=== PATIENT | female | born 1990 | race Caucasian/White ===

== ENCOUNTER 2023-02-25 21:37 | Outpatient (CLI) | payer OTHER ==
--- NOTE | 2023-02-26 01:51 | Ultrasound Report ---
PROCEDURE: OB F/U or Repeat INDICATIONS: UTERINE SIZE DATE DISCREPANCY OUTSIDE/PRIOR DATING DATA: Last menstrual period (LMP): 05/17/2022. LMP-based estimated date of delivery (ADONIS): 02/21/2023. First dating scan (date and location): 07/16/2022. Estimated date of delivery (ADONIS) from first dating scan: 03/04/2023. The below data below was generated using the working ADONIS of 03/04/2023 TECHNIQUE: Real-time scanning was performed of the fetus, with image documentation and biometric measurements. COMPARISON: [facility] 10/19/2022. FINDINGS: General: A single living intrauterine gestation is present. Presentation: Vertex Placenta: Placental position is posterior, without previa. Amniotic fluid index: 10.7 cm, within normal limits for gestational age. Largest pocket: 4.1 cm heart rate: 164 beats per minute. Maternal cervical canal: Not visualized. biometrics: Biparietal diameter: 8.8 cm, 35 weeks 5 days Head circumference: 33.5 cm, 30 weeks 2 days Abdominal circumference: 20.9 cm, 32 weeks 6 days Femur length: 6.7 cm, 34 weeks 3 days Estimated gestational age from initial scan: 39 weeks 0 days Composite gestational age from present scan: 35 weeks 2 days Estimated weight and percentile: 2353 g, 1st percentile Measurement variability in biometric dating: +/- 10 days from 12-20 weeks gestation, +/- 2 weeks from 20-30 weeks gestation, +/- 3 weeks at 30 weeks gestation or more. Cord Doppler: Systolic/diastolic ratios of 2.2, 2.3, and 3.1. IMPRESSION: 1. Single living intrauterine demonstrates estimated weight at the 1st percentile com patible with IUGR. 2. BATSHEVA within normal limits. 3. Doppler demonstrates normal S/D ratios with preserved diastolic flow in the amniotic cord. Reviewed by: Hakeem Atwood MD on 02/26/2023 1:49 AM PDT Approved by: Hakeem Atwood MD on 02/26/2023 1:49 AM PDT Station ID: [id number]
== END 2023-02-25 21:38 | disposition home or self-care (01) ==
LOC: DI 21:37
PROVIDERS: ATTEND Nurse Practitioner Obstetrics & Gynecology
DX: O26.843 Uterine size-date discrepancy, third trimester (principal); Z3A.35 35 weeks gestation of pregnancy

== ENCOUNTER 2023-02-26 07:39 | Inpatient (IN) | payer OTHER ==
[2023-02-26] MEDS ORDERED: LABETALOL 20 MG/4 ML SYRINGE IVP PRN ×3 (08:39)
[2023-02-26] MEDS ORDERED: OXYTOCIN/SODIUM CHLORIDE 500 ML IV PRN (08:39)
[2023-02-26] MEDS ORDERED: OXYTOCIN 10 UNIT/ML VIAL IM PRN (08:39)
[2023-02-26] MEDS ORDERED: miSOPROStoL 200 MCG TABLET PR PRN (08:39)
[2023-02-26] MEDS ORDERED: METHYLERGONOVINE 0.2 MG/ML VIAL IM PRN (08:39)
[2023-02-26] MEDS ORDERED: miSOPROStoL 200 MCG TABLET BC PRN (08:39)
[2023-02-26] MEDS ORDERED: hydrALAZINE INJ 20 MG/ML VIAL IVP PRN ×2 (08:39)
[2023-02-26] MEDS ORDERED: TERBUTALINE 1 MG/ML VIAL SUBQ PRN (08:39)
[2023-02-26] MEDS ORDERED: CARBOPROST TROMETHAMINE 250 MCG/ML AMP IM PRN (08:39)
[2023-02-26] MEDS ORDERED: NIFEdipine 10 MG CAPSULE PO PRN (08:39)
[2023-02-26] MEDS ORDERED: SODIUM CHLORIDE FLUSH 0.9% 10 ML SYRINGE IVP PRN (08:39)
[2023-02-26] MEDS ORDERED: fentaNYL 100 MCG/2 ML VIAL IVP PRN (08:39)
[2023-02-26] MEDS ORDERED: TRANEXAMIC ACID IN NACL 1,000 MG/100 ML BAG IV PRN (08:39)
[2023-02-26] MEDS ORDERED: LACTATED RINGERS 500 ML IV ONE (08:39)
[2023-02-26] MEDS ORDERED: lidocaine 1% 20 ML MDV ID PRN (08:39)
--- NOTE | 2023-02-26 09:56 | HISTORY & PHYSICAL EXAMINATION ---
Admit History - Visit Reason Visit Reason: Other - : 1 Parity: 0 Premature: 0 Ectopic: 0 : 0 Care: positive: [facility] Risk/History: positive: Other Complications This : positive: Other Smoking Status: Never smoker - Mother's Labs Mother's Blood Type: positive: B Mother's RH: positive: Positive GBS: positive: Group B Step Negative Rubella Status: positive: Immune Meds/Allgy - Home Medications Home Medications: Ambulatory Orders Medication Instructions Recorded Confirmed Pnv No.95/Ferrous Fum/Folic AC 02/26/23 [ Caplet] - Allergies Allergies/Adverse Reactions: Allergies Allergy/AdvReac Type Severity Reaction Status Date / Time No Known Drug Allergies Allergy Verified 02/26/23 09:54 Review of Systems - Constitutional Constitutional: denies: Fatigue, Fever, Chills, Malaise - Eyes Eyes: denies: Blurred vision, Spots in vision, Dipolpia - Cardiovascular Cariovascular: denies: Irregular heart rate, Palpitations, Chest pain, Edema - Respiratory Respiratory: denies: Wheezing, SOB at rest - Gastrointestinal Gastrointestinal: denies: Constipation, Diarrhea, Nausea, Vomiting - Genitourinary Genitourinary: denies: Dysuria - Integumentary Integumentary: denies: Rash, Pruritis - Neurological Neurological: denies: Headache - Hematologic/Lymphatic Hematologic/Lymphatic: denies: Anemia Physical - Abdominal Exam Vital Signs: Temp Pulse Resp BP Pulse Ox O2 Flow Rate 37.2 C 02/26/23 08:14 Plan for Labor - Plan For Labor Plan for Labor: HPI: Aure is a 32yo @ 39.1wks gestation by 7.0wk U/S who presents to [facility] for medical induction of labor secondary to newly diagnosed intrauterine growth restriction. She denies vaginal bleeding or leakage of fluid and she reports +FM. She was measuring size<dates at her last visit and a STAT ultrasound was ordered at that time. The ultrasound revealed EFW 1%tile (2352g). She has received consistent care for the duration of her which has remained uncomplicated with the exception of cardiac echogenic foci noted on FAS for which she was referred to [facility] for consultation. Her genetic screening with CfDNA and MAFP were negative and EFW at that time was 54%tile. She has been a patient of [facility] since her transfer of care at 24wks gestation from [facility]. She has received consistent and adequate care for the duration of her . She was noted to measure 35cm fundal height at 36 weeks and again at 38 weeks, at which time a growth ultrasound was ordered and revealed EFW 1%tile. Patient was notified and induction of labor with pre-induction cervical ripening scheduled immediately. She presents to [facility] with her [place] (Andrew) who is supportive at the bedside. She will be admitted for active management. Dating Criteria: LMP: 05/17/2022 Initial U/S @ 7.0wks dates with ADONIS 03/04/2023 Serial exams - agree PMHx: Migraines, Malaria (~2004), hypermobility Surgical Hx: Adenoidectomy, right breast augmentation Family Hx: Arrhythmia - mother; colon cancer - MGM; Cardiomyopathy -brother; Drug/alcohol abuse - brother, MGF Social Hx: to [place] (goes by Andrew). 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 They are relocating to [facility] this summer. Former smoker (~12yo). No ETOH or IVDA. Medications: PNV, Fish oil, Ferrous sulfate Allergies: NKDA course: B positive, antibody negative Rubella immune; varicella immune Initial U/S @ 7.0wks gestation dates with ADONIS 03/04/2023 Genetic screening: CfDNA negative, AFP - negative FAS WNl with the exception of bilateral echogenic intracardia foci and borderline pyelectasis noted. Posterior placenta, no previa. EFW 50%tile. M consult for echogenic foci at 23wks was WNL with EFW 54%tile. Covid-19 vaccination x 2, no booster Influenza vaccine - declined Tdap - received in third trimester Glucola - 89 GBS - negative Growth and BATSHEVA at 39.0wks reveals EFW 1%tile. BATSHEVA WNL (10.7cm with largest pocket 4.1cm). WNL Cord dopplers. Physical exam: Normocephalic, atraumatic Heart RRR w/o M/G/R Lungs CTAB Abdomen gravid, soft, nontender EFW 2353g FHR baseline 130s, moderate variability, + accels, no decels Contractions palpate mild occasionally with soft resting tone SVE 1/80/-2, midposition, soft, Vertex. Brush cervical ripening balloon placed with 80cc intrauterine balloon and 40cc vaginal balloon. Bilateral LE's trace edema Assessment: 32yo @ 39.1wks gestation by 7wk U/S IUGR GBS neg FHR Category I Plan: Admit for medical induction of labor secondary to IUGR Brush cervical ripening balloon placed with 80cc intrauterine and 40cc vaginal balloon. Pt tolerated placement well. Continuous monitoring. Expectant management with cervical ripening balloon in place x 4 hours with initiation of pitocin vs misoprostol at that time. call center dispatcher multi slide machine tender notified of patient with IUGR. Anticipate .
[2023-02-26] MEDS: SODIUM CHLORIDE FLUSH 0.9% 10 ML SYRINGE IVP SCH (12:50)
[2023-02-26 13:18] LABS: BASOPHILS # (AUTO) 0.1 10^3/uL (0.0-0.1); BASOPHILS % (AUTO) 0.6 %; EOSINOPHILS # (AUTO) 0.1 10^3/uL (0.0-0.7); EOSINOPHILS % (AUTO) 1.2 %; HCT - HEMATOCRIT 43.4 % (37.0-47.0); LYMPHOCYTES # (AUTO) 1.9 10^3/uL (1.5-3.5); LYMPHOCYTES % (AUTO) 19.6 %; MEAN CORPUSCULAR HGB CONC 32.3 g/dL (32.0-36.0); MEAN CORPUSCULAR VOLUME 93.1 fL (81.0-99.0); MEAN PLATELET VOLUME 11.5 fL (7.9-10.8); MONOCYTES # (AUTO) 0.4 10^3/uL (0.0-1.0); MONOCYTES % (AUTO) 4.1 %; NEUTROPHILS # (AUTO) 7.2 10^3/uL (1.5-6.6); PLT - PLATELET COUNT 176 10^3/uL (130-450); RED BLOOD COUNT 4.66 10^6/uL (4.20-5.40); RED CELL DISTRIBUTION WIDTH 12.8 % (12.0-15.0); WHITE BLOOD COUNT 9.8 x10^3/uL (4.8-10.8)
[2023-02-26] MEDS: LACTATED RINGERS 1,000 ML IV SCH (13:55)
[2023-02-26] MEDS: miSOPROStoL 100 MCG TABLET BC SCH (14:11)
--- NOTE | 2023-02-26 18:30 | PROVIDER PROGRESS NOTE ---
Labor Progress Note - Uterine Monitoring Uterine Monitoring Mode: positive: External toco Contraction Frequency (min/apart): 6 Contraction Intensity: positive: Mild to moderate Uterine Resting Tone: positive: Soft - Monitoring Monitor Mode: positive: External ultrasound Heart Rate Baseline: 140 Heart Rate Variability: positive: Moderate (6-25 bmp) Accelerations: positive: Present, 15x15 Decelerations: positive: None Strip Review: positive: Category I - Vaginal Exam Dilation (in cm): 5 Effacement (%): 80 Station: -2 Cervical Position: Midposition - Labor Progress Note Labor Progress Note/Additional Text: S: Feeling more discomfort with contractions and the intensity of the cont raction has occasionally required her to breathe through them. She has been using the peanut ball in bed but has frequently been up walking around or bouncing on the exercise ball at the bedside. She states she is feeling good about her progress thus far. Her and her manager patient are both supportive at the bedside. O: Cervical ripening balloon expelled SVE 5/80/-2, midposition. Vertex. A: 32yo @ 39.1wks gestation by 7.0wk U/S IUGR GBS neg FHR Category I P: Continue induction of labor secondary to IUGR. Pt desires expectant management x 4 hours. Discussed AROM at that time and pt agrees. Continuous monitoring. Anticipate .
--- NOTE | 2023-02-26 22:39 | PROVIDER PROGRESS NOTE ---
Labor Progress Note - Uterine Monitoring Uterine Monitoring Mode: positive: External toco Contraction Frequency (min/apart): 2-5 Contraction Intensity: positive: Moderate Uterine Resting Tone: positive: Soft - Monitoring Monitor Mode: positive: External ultrasound Heart Rate Baseline: 130 Heart Rate Variability: positive: Moderate (6-25 bmp) Accelerations: positive: Present, 15x15 Decelerations: positive: None Strip Review: positive: Category I - Labor Progress Note Labor Progress Note/Additional Text: S: Breathing through contractions. Walking in the hallway and doing squats and lunges. She is feeling very reassured about her progress thus far as her water just broke on it's own while she is in a deep squat in the hallway during a contraction. She is supported by her who is at the bedside currently and her meter calibrator is on her way now. O: FHR baseline 130s, moderate variability, + accels, no decels Contractions palpate moderate every 2-5 minutes with soft resting tone SVE deferred at this time A: 32yo @ 39.1wks gestation by 7.0wk U/S IUGR GBS neg FHR Category I P: Continue expectant management. Continuous monitoring. SVE in 4 hours or sooner PRN. Encouraged ambulation and position changes. Anticipate .
--- NOTE | 2023-02-27 02:54 | PROVIDER PROGRESS NOTE ---
Labor Progress Note - Uterine Monitoring Uterine Monitoring Mode: positive: External toco Contraction Frequency (min/apart): 3-6 Contraction Intensity: positive: Moderate Uterine Resting Tone: positive: Soft - Monitoring Monitor Mode: positive: External ultrasound Heart Rate Baseline: 130 Heart Rate Variability: positive: Moderate (6-25 bmp) Accelerations: positive: Present, 15x15 Decelerations: positive: None Strip Review: positive: Category I - Vaginal Exam Dilation (in cm): 5 Effacement (%): 80 Station: 0 Cervical Position: Midposition - Labor Progress Note Labor Progress Note/Additional Text: S: Bouncing on the exercise ball at the bedside. She was able to get a good little rest in and is feeling well overall. She states the contractions feel about the same in intensity to her since her water broke and have not increased in intensity. O: FHR baseline 130s, moderate variability, + accels, no decels Contractions palpate moderate every 3-6 minutes with soft resting tone SVE 5/80/0, midposition, vertex. AROM x 5 hrs A: 32yo @ 39.2wks gestation by 7.0wk U/S Early labor IUGR GBS neg FHR Category I P: Reviewed options for continued management of labor at this stage to include expectant management, nipple stimulation and continued ambulation and position changes, or initiation of pitocin for labor augmentation. Pt desires to attempt nipple stimulation with ambulation x 2 hours and will then consider pitocin for labor augmentation Repeat SVE in 2 hours. Continuous monitoring. Anticipate .
[2023-02-27] MEDS: SODIUM CHLORIDE FLUSH 0.9% 10 ML SYRINGE IVP SCH ×3 (09:53→10:54)
[2023-02-27] MEDS: miSOPROStoL 100 MCG TABLET BC SCH ×3 (09:53→10:54)
[2023-02-27] MEDS: LACTATED RINGERS 1,000 ML IV SCH ×5 (09:53→23:23)
[2023-02-27] MEDS ORDERED: OXYTOCIN/SODIUM CHLORIDE 500 ML IV SCH (11:00)
--- NOTE | 2023-02-27 16:31 | PROVIDER PROGRESS NOTE ---
Labor Progress Note - Uterine Monitoring Uterine Monitoring Mode: positive: External toco Contraction Frequency (min/apart): 4 Contraction Intensity: positive: Moderate Uterine Resting Tone: positive: Soft - Monitoring Monitor Mode: positive: External ultrasound Heart Rate Baseline: 120 Heart Rate Variability: positive: Moderate (6-25 bmp) Accelerations: positive: Present, 15x15 Decelerations: positive: None Strip Review: positive: Category I - Labor Progress Note Labor Progress Note/Additional Text: S: Ambulating in the hallways and breathing through contractions. She is coping well and both her and her operating room scheduler are supportive at her side. O: FHR baseline 135, moderate variability, + accels, no decels Contractions palpate moderate every 4 minutes with soft resting tone Pitocin at 2mU/mL SVE deferred A: 32yo @ 39.2wks gestation by 7.0wk U/S IUGR Early labor FHR Category I GBS negative P: Continuous monitoring. Continue titration of pitocin per protocol for induction of labor. Encouraged continued ambulation and position changes. Anticipate .
--- NOTE | 2023-02-27 16:40 | PROVIDER PROGRESS NOTE ---
Labor Progress Note - Uterine Monitoring Uterine Monitoring Mode: positive: External toco Contraction Frequency (min/apart): 4-6 Contraction Intensity: positive: Moderate Uterine Resting Tone: positive: Soft - Monitoring Monitor Mode: positive: External ultrasound Heart Rate Baseline: 130 Heart Rate Variability: positive: Moderate (6-25 bmp) Accelerations: positive: Present, 15x15 Decelerations: positive: Late, Prolonged (>2x10 min) Strip Review: positive: Category II - Vaginal Exam Dilation (in cm): 5 Effacement (%): 80 Station: 0 Cervical Position: Midposition - Labor Progress Note Labor Progress Note/Additional Text: S: Patient crying in a side lying position in the bed secondary to increased anxiety following a prolonged late deceleration to 60bpm. She was rotated to her left and then to her right side and heart rate recovered. Her is supportive at the bedside and they are both understandably nervous. O: FHR baseline 130s, moderate variability, + accels and an episode of 1 prolonged late deceleration to 60bpm with slow return to baseline. call person darrin morris present on the unit and was asked to the bedside. SVE unchanged from previous exam Pitocin discontinued immediately with deceleration A: 32yo @ 39.2wks gestation by 7.0wk U/S IUGR FHR Category II GBS neg P: Expectant management x 1 hour with initiation of pitocin at 1 mU/mL x 30 minutes followed by nipple stimulation for additional oxytocin release for 30 minutes prior to increasing rate of pitocin. Continuous monitoring. call person physician reviewed FHR tracing and agrees with above plan. Encouraged ambulation and position changes. We did discuss the possibility of a delivery if another prolonged late deceleration occurs and we reviewed the entire process and the plan in place in the event it does occur. Anticipate .
--- NOTE | 2023-02-27 21:29 | PROVIDER PROGRESS NOTE ---
Labor Progress Note - Uterine Monitoring Uterine Monitoring Mode: positive: External toco Contraction Frequency (min/apart): 2-3 Contraction Intensity: positive: Moderate Uterine Resting Tone: positive: Soft - Monitoring Monitor Mode: positive: External ultrasound Heart Rate Baseline: 135 Heart Rate Variability: positive: Moderate (6-25 bmp) Accelerations: positive: Present, 15x15 Decelerations: positive: None Strip Review: positive: Category I - Vaginal Exam Dilation (in cm): 5-6 Effacement (%): 90 Station: 0 Cervical Position: Midposition - Labor Progress Note Labor Progress Note/Additional Text: S: Breathing through contractions and swaying at the bedside. Her belt operator and hus band are both supportive at the bedside. She feels the contractions are increasingly significantly in both frequent and intensity. O: FHR baseline 135, moderate variability, + accels, no decels Contractions palpate moderate every 2-3 minutes with soft resting tone SVE 5-6/90/0, midposition. Vertex. Forebag of amniotic fluid noted with cervical check and pt accepts release of this and tolerates release of moderate amount of clear fluid well. SROM x 23 hours, afebrile Pitocin currently at 10mU/mL A: 32yo @ 39.2wks gestation by 7.0wk U/S IUGR FHR Category I GBS neg Nearing prolonged rupture of membranes P: Continuous monitoring Continue pitocin for induction of labor with titration per protocol Encouraged ambulation and position changes. Jacuzzi PRN. Nitrous oxide PRN. Encouraged continued ambulation and position changes. freight caller documentation lead notified of patient status. Anticipate .
--- NOTE | 2023-02-27 21:48 | PROVIDER PROGRESS NOTE ---
Labor Progress Note - Labor Progress Note Labor Progress Note/Additional Text: Pt typed and crossed x 2 units secondary to prolonged rupture of membranes and pitocin induction of labor.
--- NOTE | 2023-02-28 04:58 | PROVIDER PROGRESS NOTE ---
Labor Progress Note - Uterine Monitoring Uterine Monitoring Mode: positive: External toco Contraction Frequency (min/apart): 3-4 Contraction Intensity: positive: Strong Uterine Resting Tone: positive: Soft - Monitoring Monitor Mode: positive: External ultrasound Heart Rate Baseline: 130 Heart Rate Variability: positive: Moderate (6-25 bmp) Accelerations: positive: Present, 15x15 Decelerations: positive: None Strip Review: positive: Category I - Vaginal Exam Dilation (in cm): 6 Effacement (%): 100 Station: 0 Cervical Position: Midposition - Labor Progress Note Labor Progress Note/Additional Text: S: Breathing through contractions. She is very emotional and crying while standing at the bedside and swaying and is feeling very discouraged about her lack of progress over the past 5 hours. She reports feeling very anxious about getting an epidural as suggested. We reviewed alternative pain management and labor tools such as continued deep breathing, jacuzzi tub, nitrous oxide and IV medication. Pt feels like the epidural is the right choice as she is tired, has not slept, and is unsure how much longer she can proceed. She is managing her pain very well and is coping with each contraction. Her and her marker machine attendant are both supportive at the bedside. O: FHR baseline 130s, moderate variability, + accels, no decels Contractions palpate strong every 3-4 minutes with soft resting tone SVE 6/100/0, midposition. Vertex. SROM x 30.5hrs - afebrile Pitocin @ 11mU/mL A: 32yo @ 39.3wks gestation by 7.0wk U/S IUGR Prolonged rupture of membranes FHR Category I GBS negative P: Continue active management of labor with titration of pitocin per protocol. Recommended patient proceed with placement of epidural as a tool to maintain the trajectory towards a vaginal delivery. Anesthesia provider notified to present for further counseling and epidural placement with patient consent. Patient is type and crossed x 2 units secondary to prolonged rupture of membranes and prolonged induction of labor. When patient comfortable with epidural will proceed with placement of intr auterine pressure catheter. Continuous monitoring. Anticipate .
[2023-02-28] MEDS ORDERED: ROPIVACAINE 0.2% 200 MG/100 ML BAG EP ONE (05:21)
[2023-02-28] MEDS: LACTATED RINGERS 1,000 ML IV SCH ×3 (05:51→12:41)
--- NOTE | 2023-02-28 06:24 | ANESTHESIA ---
Pre-Anesthesia VS, & Labs - Diagnosis active labor - Procedure vaginal delivery Vital Signs: Temp Pulse Resp BP Pulse Ox O2 Flow Rate 36.7 C 68 18 117/74 100 02/27/23 20:52 02/27/23 20:52 02/27/23 20:52 02/27/23 20:52 02/27/23 20:52 Height: 5 ft 6 in Weight (kg): 72.121 kg Body Mass Index: 25.7 BMI Classification: Overweight - NPO Other (clear liquids) - Is Patient ?: Yes - Lab Results Current Lab Results: Laboratory Tests 02/26/23 13:29: Blood Type Recheck B POSITIVE 02/26/23 12:50: WBC 9.8, RBC 4.66, Hgb 14.0, Hct 43.4, MCV 93.1, MCH 30.0, MCHC 32.3, RDW 12.8, Plt Count 176, MPV 11.5 H, Neut # (Auto) 7.2 H, Lymph # (Auto) 1.9, [place] # (Auto) 0.4, Eos # (Auto) 0.1, Baso # (Auto) 0.1, Absolute Nucleated RBC 0.00, Nucleated RBC % 0.0 02/26/23 12:50: Blood Type B POSITIVE, Antibody Screen NEGATIVE, Crossmatch IS Only See Detail Lab results reviewed: Yes Fish Bones: 02/26/23 12:50 Home Medications and Allergies Home Medications: Ambulatory Orders Pnv No.95/Ferrous Fum/Folic AC [ Caplet] 02/26/23 Active Medications Carboprost Tromethamine (Carboprost Tromethamine 250 Mcg/Ml Amp) 250 mcg IM .ONCE PRN PRN Reason: Hemorrhage Fentanyl (Fentanyl 100 Mcg/2 Ml Vial) 50 mcg IVP Q1H PRN PRN Reason: Severe Pain (score 7-10) Hydralazine HCl (Hydralazine Inj 20 Mg/Ml Vial) 5 - 10 mg IVP Q20M PRN; Protocol PRN Reason: SBP> or= 160 OR DBP> or= 110 Hydralazine HCl (Hydralazine Inj 20 Mg/Ml Vial) 10 mg IVP .ONCE PRN; Protocol PRN Reason: SBP> or= 160 OR DBP> or= 110 Oxytocin/Sodium Chloride (Pitocin/Sodium Chloride) 500 mls @ 999 mls/hr IV PRN PRN; Protocol PRN Reason: POST- HEMORR PREVENTION Tranexamic Acid (Tranexamic 1,000 Mg/100ml-Nacl) 1,000 mg in 100 mls @ 600 mls/hr IV Q30M PRN PRN Reason: EBL >1200mL and within 3hr Lactated Ringer's (Lr) 1,000 mls @ 125 mls/hr IV .Q8H JUICE Last Admin: 02/27/23 23:23 Dose: 125 mls/hr Oxytocin/Sodium Chloride (Pitocin/Sodium Chloride) 500 mls @ 1 mls/hr IV TITR JUICE; Protocol Last Titration: 02/28/23 03:45 Dose: 11 milliunit/min, 11 mls/hr Labetalol HCl (Labetalol 20 Mg/4 Ml Syringe) 20 - 80 mg IVP Q10M PRN; Protocol PRN Reason: SBP> or= 160 OR DBP> or= 110 Labetalol HCl (Labetalol 20 Mg/4 Ml Syringe) 20 mg IVP .ONCE PRN; Protocol PRN Reason: SBP> or= 160 OR DBP> or= 110 Labetalol HCl (Labetalol 20 Mg/4 Ml Syringe) 20 - 40 mg IVP Q10M PRN; Protocol PRN Reason: SBP> or= 160 OR DBP> or= 110 Lidocaine HCl (Lidocaine 1% 20 Ml Mdv) 20 ml ID .ONCE PRN PRN Reason: PERINEAL REPAIR Stop: 03/01/23 08:43 Methylergonovine Maleate (Methylergonovine 0.2 Mg/Ml Vial) 0.2 mg IM .ONCE PRN PRN Reason: Hemorrhage Misoprostol (Misoprostol 200 Mcg Tablet) 600 mcg BC .ONCE PRN PRN Reason: Hemorrhage Misoprostol (Misoprostol 200 Mcg Tablet) 800 mcg [place] .ONCE PRN PRN Reason: Hemorrhage Nifedipine (Nifedipine 10 Mg Capsule) 10 - 20 mg PO Q20M PRN; Protocol PRN Reason: SBP> or= 160 OR DBP> or= 110 Oxytocin (Oxytocin 10 Unit/Ml Vial) 10 unit IM .ONCE PRN PRN Reason: Step One if no IV access. Sodium Chloride (Sodium Chloride Flush 0.9% 10 Ml Syringe) 10 ml IVP PRN PRN PRN Reason: NEEDED PER PROVIDER ORDERS Sodium Chloride (Sodium Chloride Flush 0.9% 10 Ml Syringe) 10 ml IVP Q8H JUICE Last Admin: 02/27/23 10:54 Dose: Not Given Terbutaline Sulfate (Terbutaline 1 Mg/Ml Vial) 0.25 mg SUBQ .ONCE PRN PRN Reason: Tachystole Pnv No.95/Ferrous Fum/Folic AC [ Caplet] 02/26/23 Allergies/Adverse Reactions: Allergies Allergy/AdvReac Type Severity Reaction Status Date / Time No Known Drug Allergies Allergy Verified 02/26/23 09:54 Anes History & Medical History - Anesthetic History Anesthesia Complications: reports: No previous complications, Other-see comment (woke up during breast surgery) - Medical History Cardiovascular: reports: None Pulmonary: reports: None Gastrointestinal: reports: None Urinary: reports: None Neuro: reports: None Musculoskeletal: reports: None Endocrine/Autoimmune: reports: None Blood Disorders: reports: None Skin: reports: None Smoking Status: Never smoker Psychosocial: reports: No issues indicated History of Cancer?: No - Surgical History Eyes Ears Nose Throat (EENT): reports: Tonsil/Adenoidectomy Gynecologic: reports: Other (breast lesion removed) - Obstetrical History : 1 Parity: 0 Events: reports: Other Complications: reports: Other Exam General: Alert, Oriented x3, Cooperative, No acute distress Dental: WNL Mouth Openin Fingerbreadth Neck Mobility: Normal Mallampati classification: II Thyromental Distance: 4-6 cm Mental/Cognitive Status: Alert/Oriented X3, Normal for patient Plan Anesthesia Type: Epidural Consent for Procedure(s) Verified and Reviewed: Yes Code Status: Attempt Resuscitation ASA classification: 2-Mild systemic disease Is this case an emergency?: No
[2023-02-28] MEDS ORDERED: ePHEDrine 50 MG/ML VIAL IVP PRN ×2 (06:27→15:43)
[2023-02-28] MEDS ORDERED: ROPIVACAINE 0.2% 200 MG/100 ML BAG EP PRN (06:27)
[2023-02-28] MEDS ORDERED: NALOXONE 0.4 MG/ML VIAL IVP PRN ×3 (06:27→15:43)
--- NOTE | 2023-02-28 11:09 | PROVIDER PROGRESS NOTE ---
Labor Progress Note - Uterine Monitoring Uterine Monitoring Mode: positive: IUPC Contraction Frequency (min/apart): 3-7 Contraction Intensity: positive: Moderate Uterine Resting Tone: positive: Soft - Monitoring Monitor Mode: positive: External ultrasound Heart Rate Baseline: 120 Heart Rate Variability: positive: Moderate (6-25 bmp) Accelerations: positive: Present, 15x15 Decelerations: positive: Variable, Recurrent (>50% x20 min) Strip Review: positive: Category II - Vaginal Exam Dilation (in cm): 6 Effacement (%): 100 Station: 0 Cervical Position: Midposition - Labor Progress Note Labor Progress Note/Additional Text: S: Comfortable in bed with her epidural. her is supportive at the bedside. SHe is very tired and teary secondary to the feeling that her plan is being chipped away at. She is feeling really exhausted and "helpless". We discussed doing her best to get a nap and resting so she can have energy to push out her baby and then take care of him after he comes out and she reports feeling reassured by this and desires to do her best to get much needed rest. O: FHR baseline 120s, moderate variability, + accels, intermittent variable decelerations with contractions. Contractions 50MVUs with IUPC in place SVE 6/100/0 Pitocin at 16mU/mL A: 32yo @ 39.3wks gestation by 7.0wk U/S IUGR Prolonged rupture of membranes (36hrs) - afebrile FHR Category II - overall reassuring at present time GBS neg P: Consult with prisoner classification interviewer physician. Continuous monitoring. Continue to monitor closely for evidence of infection. IV Benadryl 25mg IV now Maintain epidural for pain management. Continue rotation on peanut ball in the bed. Continue to calculate MVUs and titrate pitocin to adequate (200 MVUs)
[2023-02-28] MEDS ORDERED: diphenhydrAMINE INJ 50 MG/ML VIAL IVP PRN (11:10)
[2023-02-28 12:31] LABS: HCT - HEMATOCRIT 38.7 % (37.0-47.0); HGB - HEMOGLOBIN 12.9 g/dL (12.0-16.0); MEAN CORPUSCULAR HEMOGLOBIN 30.6 pg (27.0-31.0); MEAN CORPUSCULAR HGB CONC 33.3 g/dL (32.0-36.0); MEAN CORPUSCULAR VOLUME 91.9 fL (81.0-99.0); MEAN PLATELET VOLUME 12.5 fL (7.9-10.8); RED BLOOD COUNT 4.21 10^6/uL (4.20-5.40); RED CELL DISTRIBUTION WIDTH 12.7 % (12.0-15.0); WHITE BLOOD COUNT 17.3 x10^3/uL (4.8-10.8)
[2023-02-28] MEDS ORDERED: CEFAZOLIN 2G/50ML 0.9% NS 2 GM/50 ML BAG IV SCH (12:44)
[2023-02-28 12:53] LABS: ALBUMIN 3.2 g/dL (3.2-5.5); ALBUMIN/GLOBULIN RATIO 0.9 (1.0-2.2); BILIRUBIN,TOTAL 0.6 mg/dL (0.2-1.0); CALCIUM 8.9 mg/dL (8.5-10.3); CREATININE 0.6 mg/dL (0.4-1.0); POTASSIUM 3.5 mmol/L (3.5-5.0); TOTAL PROTEIN 6.9 g/dL (6.7-8.2)
[2023-02-28] MEDS ORDERED: CEFAZOLIN 2G/50ML 0.9% NS 2 GM/50 ML BAG IV ONE (12:56)
[2023-02-28] MEDS ORDERED: OXYTOCIN 10 UNIT/ML VIAL ONE (14:10)
[2023-02-28] MEDS ORDERED: PHENYLEPHRINE 10 MG/ML VIAL ONE (14:10)
[2023-02-28] MEDS ORDERED: DEXAMETHASONE 4 MG/ML VIAL ONE (14:10)
[2023-02-28] MEDS ORDERED: ONDANSETRON 4 MG/2 ML VIAL ONE (14:10)
[2023-02-28] MEDS ORDERED: ACETAMINOPHEN 1,000 MG/100 ML 1,000 MG/100 ML BAG IV ONE (14:10)
[2023-02-28] MEDS ORDERED: ePHEDrine 50 MG/ML VIAL IVP ONE (14:10)
[2023-02-28] MEDS ORDERED: LIDOCAINE MPF 2%-EPI 1:200000 20 ML VIAL ONE (14:10)
[2023-02-28] MEDS ORDERED: SODIUM CHLORIDE 0.9% 10 ML VIAL IVP ONE ×2 (14:10→14:41)
[2023-02-28] MEDS ORDERED: KETOROLAC 30 MG/ML VIAL ONE (14:10)
[2023-02-28] MEDS ORDERED: ROPIVACAINE 0.5% PF 20 ML VIAL ONE ×2 (14:11→14:41)
[2023-02-28] MEDS ORDERED: LACTATED RINGERS 1,000 ML IV ONE (15:01)
[2023-02-28] MEDS ORDERED: ONDANSETRON 4 MG/2 ML VIAL IVP PRN ×2 (15:09→15:43)
[2023-02-28] MEDS ORDERED: OXYTOCIN/SODIUM CHLORIDE 500 ML IV PRN (15:09)
[2023-02-28] MEDS ORDERED: HYDROmorphone 0.5 MG/0.5 ML SYRINGE IVP PRN (15:43)
[2023-02-28] MEDS ORDERED: fentaNYL 100 MCG/2 ML VIAL IVP PRN (15:43)
[2023-02-28] MEDS ORDERED: MORPHINE 2 MG/ML CARPUJECT IVP PRN (15:43)
[2023-02-28] MEDS ORDERED: ATROPINE ABBOJECT 1 MG/10 ML SYRINGE IVP PRN (15:43)
[2023-02-28] MEDS ORDERED: METOCLOPRAMIDE 10 MG/2 ML VIAL IVP PRN (15:43)
[2023-02-28] MEDS ORDERED: LACTATED RINGERS 1,000 ML IV SCH (16:00)
--- NOTE | 2023-02-28 17:11 | ANESTHESIA POST OP EVALUATION ---
Anesthesia Post Eval - Post Anesthesia Eval Vitals: Last Vital Signs Temp 36.9 C 02/28/23 15:39 Pulse 67 02/28/23 15:39 Resp 14 02/28/23 15:39 BP 121/67 02/28/23 15:39 Pulse Ox 100 02/28/23 15:39 O2 Flow Rate CV Function Including HR & BP: Stable Pain Control: Satisfactory Nausea & Vomiting: Negative Mental Status: Baseline Respiratory Status: Airway Patent Hydration Status: Satisfactory Anesthesia Complications: None
[2023-02-28] MEDS: KETOROLAC 30 MG/ML VIAL IVP SCH (20:38)
--- NOTE | 2023-02-28 22:32 | DELIVERY NOTE ---
Delivery Note - Labor Labor: positive: Augmented by oxytocin - Delivery Method Delivery Method: positive: Primary - Cervical Ripening Method Cervical Ripening Method: positive: Balloon device, Misoprostil - Presentation Presentation: positive: Vertex, NATALIE - left occiput anterior - Nuchal Cord Nuchal Cord: positive: None - Anesthetic Anesthetic Type: - Amniotic Fluid Description Amniotic Fluid Description: positive: Clear - Delivery Outcome Delivery Outcome: positive: Livebirth - [place] : positive: Bulb syringe, Stimulated, Warmed, Warmer used sex: positive: Male - Cord Cord: positive: 3 vessels - Placenta Placenta: positive: Expressed - Estimated Blood Loss Estimated Blood Loss (in cc): 600 - Post Delivery Events Post Delivery Events: positive: Unplanned - Delivery Comments (Free Text/Narrative) Delivery Comments (Free Text/Narrative): See PCD uncomplicated operative report.
--- NOTE | 2023-02-28 22:34 | OPERATIVE REPORT ---
Operative Report - General Admit Date: 02/26/23 Procedure Date: 02/28/23 Planned Procedure: Primary section Pre-Op Diagnosis: NRFHT, failure to progress (6cm), unsuccessful IOL for IUGR Procedure Performed: Primary section Post Op Diagnosis: NRFHT, failure to progress (6cm), unsuccessful IOL for IUGR - Procedure Note Primary Surgeon: Smita Trimble DO Secondary Surgeon: Lina Bradshaw CNM Anesthesia Provider: Netta Schwarz CRNA Anesthesia Technique: Epidural Pathology: None Placenta discarded Estimated Blood Loss (mL): 600 Indications: NRFHT, failure to progress (6cm), unsuccessful IOL for IUGR Findings: Normal appearing uterus, oviducts, ovaries Viable male Complications: None - Other Other Information/Narrative: Under epidural anaesthetic with a Brush catheter inserted, the patient was prepped and draped in the usual sterile fashion in the supine position with a leftward tilt. A Pfannensteil incision was made. The incision was carried down to the fascia with cautery. The fascia was incised transversely and dissected off the rectus muscle using sharp dissection. Electrocautery was used for hemostasis. The peritoneum was opened taking care not to injure the bladder. The vesicouterine peritoneum was dissected off the lower uterine segment. The lower segment was assessed and a low transverse incision was made. The uterine incision was extended bluntly. The fetus was presenting as a vertex. The head was delivered without difficulty and the rest of the body followed easily. After delayed cord clamping, the cord was clamped twice and cut and the baby transferred to the warmer, awaiting the pediatric staff. Cord gases were then obtained. The placenta was then delivered with assistance. The uterus was explored and was empty of all tissue. The uterus was exteriorized for better visualization. The uterine incision was then closed in two layers with 0- Monocryl. The first layer was locking and the second was imbricating. Tubes and ovaries were examined and appeared normal. Hemostasis noted at all dissection sites. Two interrupted sutures reapproximated the peritoneum and rectus muscle with 2-0 chromic. The fascia was closed with 0-Vicryl in a running unlocked fashion. Subcutaneous layer reapproximated with 2-0 chromic. The skin was then reappr oximated with 3-0 Monocryl. At the end of the procedure all sponges, instruments, and sharps were counted and correct. Estimated blood loss was 600cc. The patient and were taken to the recovery in stable condition.
[2023-03-01] MEDS: KETOROLAC 30 MG/ML VIAL IVP SCH ×2 (03:15→09:58)
[2023-03-01] MEDS: ACETAMINOPHEN 500 MG TABLET PO SCH ×3 (03:19→20:43)
[2023-03-01 05:11] LABS: HCT - HEMATOCRIT 33.9 % (37.0-47.0); HGB - HEMOGLOBIN 11.1 g/dL (12.0-16.0); MEAN CORPUSCULAR HEMOGLOBIN 29.8 pg (27.0-31.0); MEAN CORPUSCULAR HGB CONC 32.7 g/dL (32.0-36.0); MEAN CORPUSCULAR VOLUME 90.9 fL (81.0-99.0); RED BLOOD COUNT 3.73 10^6/uL (4.20-5.40); RED CELL DISTRIBUTION WIDTH 12.5 % (12.0-15.0); WHITE BLOOD COUNT 13.5 x10^3/uL (4.8-10.8)
[2023-03-01] MEDS: DOCUSATE SODIUM 100 MG CAPSULE PO SCH (08:25)
[2023-03-01] MEDS: IBUPROFEN 800 MG TABLET PO SCH ×3 (09:51→21:33)
[2023-03-01] MEDS: oxyCODONE 5 MG TABLET PO PRN ×2 (10:11→23:39)
--- NOTE | 2023-03-01 13:52 | PROVIDER PROGRESS NOTE ---
Labor Progress Note - Uterine Monitoring Uterine Monitoring Mode: positive: IUPC Contraction Frequency (min/apart): 4 Contraction Intensity: positive: Moderate Uterine Resting Tone: positive: Soft - Monitoring Monitor Mode: positive: External ultrasound Heart Rate Baseline: 120 Heart Rate Variability: positive: Minimal (0-5 bpm) Accelerations: positive: Absent Decelerations: positive: Variable, Recurrent (>50% x20 min) Strip Review: positive: Category II - Vaginal Exam Dilation (in cm): 6 Effacement (%): 100 Station: 0 Cervical Position: Midposition - Labor Progress Note Labor Progress Note/Additional Text: S: Patient comfortable with epidural. She was able to nap intermittently following placement of her epidural. She is very teary and crying due to my recommendation that the information manager physician take over her care and consult for delivery secondary to intolerance of labor. Her is supportive at the bedside. O: FHR baseline 120s, minimal variability with intermittent periods of moderate variability, no accels, recurrent variable decelerations Contractions moderate with MVUs 60. SVE 6/100/0, vertex with mild caput noted Prolonged rupture of membranes (38 hrs) - afebrile A: 32yo @ 39.3wks gestation by 7.0 wk U/S IUGR intolerance of labor Prolonged rupture of membranes FHR Category II GBS neg P: Care handed to information manager physician. See physician documentation for future notes.
--- NOTE | 2023-03-01 18:31 | PROVIDER PROGRESS NOTE ---
Subjective - Prog Note Date Prog Note Date: 03/01/23 Prog Note Time: 16:00 - Subjective Pt reports feeling: Improved (Comfortable with ibuprofen and acetaminophen. One dose oxycodone. Appropriate lochia. Ambulating. Voiding. Tolerating regular diet. well. Mood is good. Baby boy rooming in with mother doing well.) Objective - Vital Signs/Intake & Output Reviewed Vital Signs: Yes Vital Signs: Vital Signs x48h Temp Pulse Resp BP Pulse Ox 03/01/23 12:07 97.7 F 64 18 114/66 100 Intake & Output: Intake & Output 02/26/23 02/27/23 02/28/23 03/01/23 23:59 23:59 23:59 23:59 Intake Total 1320 4023.166 6040.584 Output Total 2 2750 3500 Balance 1320 4021.166 3290.584 -3500 - Objective General Appearance: positive: No acute distress Eyes Bilateral: positive: EOMI Respiratory: positive: No respiratory distress Abdomen: positive: Other (Incision c/d/i, dressing removed, appropriately tender) Skin: positive: Color nml Extremities: positive: Non-tender Neurologic/Psychiatric: positive: Oriented x3 - Lab Results Fish Bones: 03/01/23 05:06 02/28/23 08:40 Other Labs: Lab Results x24hrs 03/01/23 Range/Units 05:06 WBC 13.5 H (4.8-10.8) x10^3/uL RBC 3.73 L (4.20-5.40) 10^6/uL Hgb 11.1 L (12.0-16.0) g/dL Hct 33.9 L (37.0-47.0) % MCV 90.9 (81.0-99.0) fL MCH 29.8 (27.0-31.0) pg MCHC 32.7 (32.0-36.0) g/dL RDW 12.5 (12.0-15.0) % Plt Count 141 (130-450) 10^3/uL MPV 11.0 H (7.9-10.8) fL Assessment/Plan - Problem List (1) care following delivery Impression: 32yo s/p PCD 02/28/23 at 39.3w for NRFHT/failed IOL (6cm), POD#1 following IOL for suspected IUGR 1% - Continue /postoperative care - Anticipate discharge tomorrow - Follow up with [facility]
[2023-03-02] MEDS: IBUPROFEN 800 MG TABLET PO SCH ×3 (04:21→16:03)
[2023-03-02] MEDS: ACETAMINOPHEN 500 MG TABLET PO SCH ×3 (04:21→15:37)
[2023-03-02] MEDS: oxyCODONE 5 MG TABLET PO PRN ×3 (07:53→16:04)
[2023-03-02] MEDS: DOCUSATE SODIUM 100 MG CAPSULE PO SCH ×2 (07:54→15:30)
--- NOTE | 2023-03-02 10:51 | Discharge Plan ---
Discharge Plan Problem Reviewed?: Yes Disposition: Home, Self Care Condition: Good Prescriptions: Acetaminophen [Acetaminophen Extra Strength] 1,000 mg PO Q8H PRN #60 tablet PRN Reason: Pain Docusate Sodium 100Mg Capsule [Colace 100Mg Capsule] 100 - 200 mg PO BID PRN #60 cap PRN Reason: Constipation Ibuprofen [Motrin] 600 mg PO Q6H PRN #30 tab PRN Reason: Pain oxyCODONE [Roxicodone] 2.5 - 5 mg PO Q4H PRN #12 tablet PRN Reason: Severe Pain Diet: Regular Shower Restrictions: No Driving Restrictions: Yes (no driving while taking narcotics.) No Smoking: If you smoke, Please STOP! Call for help.
--- NOTE | 2023-03-02 10:54 | DISCHARGE SUMMARY ---
"Discharge Summary Discharge Date: 03/02/23 Condition at Discharge: Good Discharge Disposition: 01 Home, Self Care - DIAGNOSES Admission Diagnoses: admit for induction for IUGR failure to progress in labor delivery by c section Discharge Diagnoses with Status of Each Condition: all problems now resolved. s/p c section - HPI History of Present Illness: Admitted for labor induction due to IUGR at term. Patient of TONY Marky Bradshaw. - CONSULTS | PROCEDURES Procedures: low transverse c section 02/28/23 - HOSPITAL COURSE Hospital Course: Patient was admitted for labor induction. failed to progress in labor over many hours. Low transverse c section performed without complication on 02/28/23. discharged home on post day 2 after unremarkable post course. - ALLERGIES Allergies/Adverse Reactions: Allergies Allergy/AdvReac Type Severity Reaction Status Date / Time No Known Drug Allergies Allergy Verified 02/26/23 09:54 - MEDICATIONS Home Medications: Ambulatory Orders Medication Instructions Recorded Confirmed Pnv No.95/Ferrous Fum/Folic AC 02/26/23 [ Caplet] Acetaminophen [Acetaminophen Extra 1,000 mg PO Q8H PRN #60 tablet 03/02/23 Strength] Docusate Sodium 100Mg Capsule 100 - 200 mg PO BID PRN #60 cap 03/02/23 [Colace 100Mg Capsule] Ibuprofen [Motrin] 600 mg PO Q6H PRN #30 tab 03/02/23 oxyCODONE [Roxicodone] 2.5 - 5 mg PO Q4H PRN #12 tablet 03/02/23 - LABS Result Diagrams: 03/01/23 05:06 02/28/23 08:40"
[2023-03-02 12:13] VITALS: BP 129/73
[2023-03-02] MEDS: SODIUM CHLORIDE FLUSH 0.9% 10 ML SYRINGE IVP SCH (15:27)
[2023-03-02] MEDS: LACTATED RINGERS 1,000 ML IV SCH (15:31)
--- NOTE | 2023-03-02 16:59 | Labor Flowsheet ---
Labor Flowsheet Datetime Report Generated by CPN: 03/02/2023 16:59 Datetime: 03/02/2023 11:53 VITAL SIGNS NBP Sys/Nasreen/Mean (mmHg): 129 : 73 : 87 Pulse: 59 Datetime: 03/01/2023 11:59 SpO2 (%): 100 Datetime: 02/28/2023 14:00 Stage of : Datetime: 02/28/2023 13:16 UTERINE ACTIVITY Monitor Mode: Internal Frequency (min): 125 Duration (sec): 4m Pattern: Normal: <= 5 Contractions in 10 Minutes Resting Tone (Palpate): Relaxed Resting Tone IUP (mmHg): 20 Intensity IUP (mmHg): 50-90s [place] Units (mmHg): 45 ASSESSMENT A Monitor Mode: External US FHR Baseline Rate : 120 FHR Baseline Changes: No Baseline Change Variability: Moderate 6-25 bpm Accelerations: 15X15 Decelerations: None Category: Category I Datetime: 02/28/2023 13:14 LaborFlag: Labor Datetime: 02/28/2023 13:06 Antibiotics: Ancef IV (Gm) @ 2 Datetime: 02/28/2023 13:00 Quality: Moderate Monitor Interventions for FHR: Ultrasound Adjusted Comments: broken tracing. rn at bedside Datetime: 02/28/2023 12:45 MEDICATIONS Pitocin (milliunits): Discontinued COMMUNICATION Communication: Provider at Bedside Provider Notified (Name): Dr. [place] Communication Comments: Consenting for CSection Datetime: 02/28/2023 12:26 Exam by: A. Augustine CNM [facility] C[facility] DIRECTOR Vaginal Exam Comments: unchanged Datetime: 02/28/2023 12:04 Patient Position/Activity: Left Lateral Patient Care Comments: peanut ball Datetime: 02/28/2023 07:45 Temperature (C): 36.6 Datetime: 02/28/2023 07:24 Monitor Interventions for UA: IUPC Inserted Datetime: 02/28/2023 07:15 Actions for Decelerations: Provider Notified Datetime: 02/28/2023 07:12 PAIN Pain Scale: 2 Pain Type: Cramping Pain Location: Abdomen Pain Assessment Comments: tighteniong on upper abdomen only. VAGINAL EXAM Dilatation (cm): 6.0 Effacement (%): 92 Station: 0 Cervix, Consistency: Soft Cervix, Position: Midposition I/O Interventions: Brush Cath Inserted Datetime: 02/28/2023 06:34 Pain Presence: Intermittent Datetime: 02/28/2023 05:50 Vital Sign Comments: NEw IV site placed to R Forarm Medication Comments: pitocin infusio nand LR restarted at previoous rates PATIENT CARE IV/Blood Work: IV Started; IV Infusing per Order ANESTHESIA Anesthesia Plans: Epidural Datetime: 02/28/2023 05:35 Epidural Procedure: Test Dose Datetime: 02/28/2023 05:23 PROCEDURE TIME OUT Procedure Verify: Correct Patient Identity; Correct Side and Site are Marked; Accurate Procedure Co nsent Form; Agreement on Procedure to be Done Epidural Positioning: Sitting Datetime: 02/28/2023 05:03 Anesthesia Comments: A Alexei HEAVY THREADER at BS to discuss anesthesia options Datetime: 02/28/2023 04:08 Respirations: 18 Datetime: 02/28/2023 04:01 Pain Relief Measures: Comfort Measures Pain Coping: Breathing Through Contractions; Crying Datetime: 02/28/2023 03:01 Comfort Measures: Breathing/Relaxation; Coaching; Back Rub Given; Hot/Cold Pack; Family Support; Ar omatherapy; Cullet Washer Support Datetime: 02/28/2023 01:30 Oxygen Method: Room Air Datetime: 02/28/2023 00:15 Pitocin Checklist: At Least 1 Acceleration of 15 bpm x 15 Seconds in 30 Minutes or Adequate Variabi lity; No More than 1 Late Deceleration Occurred in Past 30 Minutes; No More than 2 Variable Decelerat ions > 60 Seconds in Duration and decreasing >60 bpm in 30 minutes; No More than 5 Uterine Contractio ns in 10 Minutes for any 20 Minute Interval; Uterus Palpates Soft between Contractions Datetime: 02/28/2023 00:10 TEACHING Instructional Method: Verbal; Patient Instructed; Family/Support Person Instructed; Verbalized Unde rstanding Plan of Care: Plan of Care Discussed Unit Routine: Unit Personnel; Medications Pain Management: PRN Medications; Comfort Measures (Annotations: Reviewed nitrous oxide option for pain mgmt, benefits, risks, side effects. Pt would like to use. ) Datetime: 02/28/2023 00:03 Temperature Route: Oral Datetime: 02/27/2023 22:49 Strip Reviewed by: Miguel mcconnellmichelle ARN Datetime: 02/27/2023 21:39 Medications: Pitocin Teaching Comments: discussed PPH risks and prevention stratedgey. pt is happy to recieve profolacti c pitocin per hospital protocol and LP orders at time of . Datetime: 02/27/2023 20:51 MATERNAL ASSESSMENT Level of Consciousness: Alert Headache: Denies Breath Sounds, Left: Clear and Equal Breath Sounds, Right: Clear and Equal Nausea/Vomiting: Denies RUQ Epigastric Pain: Denies Datetime: 02/27/2023 20:43 Membranes Rupture Method: Artificial Membrane Comments: forebag ruptured Datetime: 02/27/2023 19:01 Contraction Comments: toco adjusted; pt in hands and knees Datetime: 02/27/2023 12:27 Vaginal Bleeding: None Datetime: 02/27/2023 06:35 Hygiene: Shower Datetime: 02/26/2023 22:17 Membrane Status: Ruptured Amniotic Fluid Color: Clear Amniotic Fluid Amount: Moderate Amniotic Fluid Odor: Normal Datetime: 02/26/2023 20:00 Labor/Induction: Labor Stages; Augmentation; Induction; Artificial Rupture of Membranes; Inte rventions; Activity Datetime: 02/26/2023 19:25 Maternal Comments: pt in tub, would like time to labor uninteruppted. RN will return for asse ssment later. reviewed emergency cord and call jay location in bathroom and safety reviewed. Datetime: 02/26/2023 09:05 Cervical Ripening Agents: Cytotec @
--- NOTE | 2023-03-05 13:36 | PROCEDURE REPORT ---
Hospitalist Procedure Note - Procedure Note Procedure Note: I assisted the OB on vall in the section for this patient. My responsibilities included retracting and suctions, fundal pressure during delivery and following with suture during closure. Please see the OB's note for details of the surgery. Lina Bradshaw CNM/KHADIJAH Date 02/28/2023 Time: 2230
== END 2023-03-02 16:20 | disposition home or self-care (01) | DRG 787 ==
LOC: WFO 07:39 → FBP 07:41 → WFO 08:38 → FBP 08:39
PROVIDERS: ADMIT Nurse Practitioner Obstetrics & Gynecology; ATTEND Obstetrics & Gynecology
PROC: 0U7C7ZZ Dilation of Cervix, Via Natural or Artificial Opening (ICD-10-PCS; 2023-02-26)
PROC: 3E033VJ Introduction of Other Hormone into Peripheral Vein, Percutaneous Approach (ICD-10-PCS; 2023-02-26)
PROC: 10H07YZ Insertion of Other Device into Products of Conception, Via Natural or Artificial Opening (ICD-10-PCS; 2023-02-28)
PROC: 10D00Z1 Extraction of Products of Conception, Low, Open Approach (ICD-10-PCS; principal; 2023-02-28 13:30)
DX: O36.5930 Maternal care for other known or suspected poor fetal growth, third trimester, not applicable or unspecified (principal); O63.9 Long labor, unspecified; Z3A.39 39 weeks gestation of pregnancy; O76 Abnormality in fetal heart rate and rhythm complicating labor and delivery; Z37.0 Single live birth; O62.0 Primary inadequate contractions; O61.0 Failed medical induction of labor
CPT/HCPCS: 36415; 80053; 85025; 85027; 86850; 86900; 86901; 86920; A9270; J0131; J0690; J1200; J2795; J7120